=== PATIENT | male | born 1950 | race Caucasian/White ===

== ENCOUNTER 2019-02-21 13:01 | Observation (INO) | payer MEDICARE ==
--- NOTE | 2019-02-21 13:35 | ERPHSYRPT ---
- History of Present Illness Time Seen by Provider: 02/21/19 13:19 Source: patient, EMS, other (son) Exam Limitations: no limitations Physician History: Patient was found unresponsive by his family member, EMS checked his blood glucose, it was 20, he was given IV D50, recovered. He is diabetic, takes Glipizide and Januvia daily, and has not been eating for about one week. He denies any complaints, he does not have appetite, denies any pain, nausea, SOB, fever, vomiting, diarrhea, other complaints. Timing/Duration: hour(s) (1) Severity: severe Modifying Factors: Improves With: nothing Associated Symptoms: denies symptoms Allergies/Adverse Reactions: codeine Allergy (Verified 02/21/19 13:29) Home Medications: Amlodipine Besylate 10 mg PO DAILY 02/21/19 [History] Atorvastatin Calcium 80 mg PO HS 02/21/19 [History] Escitalopram Oxalate 10 mg [Lexapro 10 MG] 10 mg PO DAILY 02/21/19 [History] Fenofibric Acid (Choline) [Fenofibric Acid] 135 mg PO HS 02/21/19 [History] Glipizide Xl 10 mg [Glucotrol Xl 10 MG] 10 mg PO DAILY 02/21/19 [History] Lisinopril 5 mg PO DAILY 02/21/19 [History] Metoprolol Tartrate 50 mg [Lopressor 50 MG] 50 mg PO BID 02/21/19 [History ] Sitagliptin Phosphate [Januvia] 50 mg PO DAILY 02/21/19 [History] Warfarin Sodium 2 mg PO DAILY 02/21/19 [History] hydroCHLOROthiazide [Hydrochlorothiazide] 12.5 mg PO DAILY 02/21/19 [History] - Review of Systems Constitutional: Weakness Eyes: No Symptoms Ears, Nose, & Throat: No Symptoms Respiratory: No Symptoms Cardiac: No Symptoms Abdominal/Gastrointestinal: No Symptoms Genitourinary Symptoms: No Symptoms Musculoskeletal: No Symptoms Skin: No Symptoms Neurological: No Symptoms Psychological: No Symptoms, No Depression, No Suicidal Ideations All Other Systems: Reviewed and Negative - Nursing Vital Signs Nursing Vital Signs: Initial Vital Signs Temperature 97.7 F 02/21/19 13:07 Pulse Rate 90 02/21/19 13:07 Respiratory Rate 18 02/21/19 13:07 Blood Pressure 178/115 02/21/19 13:07 O2 Sat by Pulse Oximetry 100 02/21/19 13:07 Pain Scale Pain Intensity 0 - Physical Exam General Appearance: no apparent distress Eye Exam: PERRL/EOMI, eyes nml inspection Ears, Nose, Throat Exam: normal ENT inspection, pharynx normal, moist mucous membranes Neck Exam: normal inspection, non-tender, supple, No carotid bruit, No JVD Respiratory Exam: normal breath sounds, lungs clear, airway intact, No chest tenderness Cardiovascular Exam: regular rate/rhythm, normal heart sounds, normal peripheral pulses, No murmur Gastrointestinal/Abdomen Exam: soft, normal bowel sounds, No tenderness, No distention, No mass, No guarding, No pulsatile mass, No rebound, No organomegaly Back Exam: normal inspection, No CVA tenderness, No vertebral tenderness Extremity Exam: normal inspection, No calf tenderness, No emilia's sign, No pedal edema Neurologic Exam: alert, oriented x 3, cooperative, normal mood/affect Skin Exam: normal color, warm, dry, No rash, No petechiae, No jaundice, No cyanosis, No diaphoresis Lymphatic Exam: No adenopathy SpO2 Interpretation: normal O2 Delivery: Room Air - Course Nursing assessment & vital signs reviewed: Yes EKG Interpreted by Me: RATE (67/min), Left Nolan Deviation, NORMAL INTERVALS, NORMAL QRS, Non-specific ST Changes - Radiology Exams Chest X-ray Interpretation: Interpreted by me, Negative, Other (COPD) Ordered Tests: Active Orders 24 hr Category Date Time Status EKG-ER Only STAT Care 02/21/19 13:25 Active CHEST 1 VIEW (PORTABLE) Stat Exams 02/21/19 13:26 Completed CBC W DIFF Stat Lab 02/21/19 13:40 Completed CK-Creatinine Phosphokinase Stat Lab 02/21/19 13:40 Completed CMP Stat Lab 02/21/19 13:40 Completed LIPASE Stat Lab 02/21/19 13:40 Completed Lactic Acid Stat Lab 02/21/19 13:25 Results MAGNESIUM Stat Lab 02/21/19 13:40 Completed PROTIME WITH INR Stat Lab 02/21/19 13:40 Completed PTT Stat Lab 02/21/19 13:40 Completed TROPONIN Q3H Lab 02/21/19 13:40 Completed TROPONIN Q3H Lab 02/21/19 16:30 Ordered TROPONIN Q3H Lab 02/21/19 19:30 Ordered TROPONIN Q3H Lab 02/21/19 22:30 Ordered TROPONIN Q3H Lab 02/22/19 01:30 Ordered UA W/RFX UR CULTURE Stat Lab 02/21/19 14:12 Completed Medication Summary Generic Name Dose Route Start Last Admin Trade Name Freq PRN Reason Stop Dose Admin Sodium Chloride 1,000 mls @ 100 mls/hr 02/21/19 13:30 02/21/19 13:53 Sodium Chloride 0.9% 1000 Ml IV 03/23/19 13:29 100 mls/hr .Q10H JOSE JUAN Administration Discontinued Medications Generic Name Dose Route Start Last Admin Trade Name Freq PRN Reason Stop Dose Admin Sodium Chloride 1,000 mls @ 999 mls/hr 02/21/19 13:52 02/21/19 13:59 Sodium Chloride 0.9% 1000 Ml IV 02/21/19 14:52 Not Given .Q1H1M STA Lab/Rad Data: Laboratory Result Diagrams 02/21/19 13:40 02/21/19 13:40 Laboratory Results 02/21/19 02/21/19 02/21/19 Range/Units 14:12 13:40 13:40 WBC (4.0-10.5) K/mm3 RBC (4.1-5.6) M/mm3 Hgb (12.5-18.0) gm/dl Hct (42-50) % MCV (78-100) fl MCH (26-32) pg MCHC (32-36) g/dl RDW (11.5-14.0) % Plt Count (150-450) K/mm3 MPV (6-9.5) fl Gran % (36.0-66.0) % Eos # (Auto) (0-0.5) Absolute Lymphs (auto) (1.0-4.6) Absolute Monos (auto) (0.0-1.3) Lymphocytes % (24.0-44.0) % Monocytes % (0.0-12.0) % Eosinophils % (0.00-5.0) % Basophils % (0.0-0.4) % Absolute Granulocytes (1.4-6.9) Basophils # (0-0.4) PT 130.2 H (8.83-12.87) SECONDS INR > 10.00 H* (0.8-3.0) APTT 76.7 H (24.1-36.1) SECONDS Sodium (137-145) mmol/L Potassium (3.5-5.1) mmol/L Chloride (98-107) mmol/L Carbon Dioxide (22-30) mmol/L Anion Gap (5-15) MEQ/L BUN (9-20) mg/dL Creatinine (0.66-1.25) mg/dL Estimated GFR ML/MIN Glucose (74-106) mg/dL Lactic Acid (0.4-2.0) Calcium (8.4-10.2) mg/dL Magnesium (1.6-2.3) mg/dL Total Bilirubin (0.2-1.3) mg/dL AST (17-59) U/L ALT (0-50) U/L Alkaline Phosphatase (38-126) U/L Creatine Kinase (55-170) U/L Troponin I < 0.012 (0.000-0.034) ng/mL Serum Total Protein (6.3-8.2) g/dL Albumin (3.5-5.0) g/dL Lipase (23-300) U/L Urine Color YELLOW (YELLOW) Urine Appearance CLEAR (CLEAR) Urine pH 5.0 (5-6) Ur Specific [place] 1.014 (1.005-1.025) Urine Protein 100 (Negative) Urine Ketones NEGATIVE (NEGATIVE) Urine Blood SMALL (0-5) Carlos/ul Urine Nitrite NEGATIVE (NEGATIVE) Urine Bilirubin NEGATIVE (NEGATIVE) Urine Urobilinogen NEGATIVE (0-1) mg/dL Ur Leukocyte Esterase NEGATIVE (NEGATIVE) Urine WBC (Auto) NONE (0-5) /HPF Urine RBC (Auto) 3-5 (0-2) /HPF U Epithel Cells (Auto) NONE (FEW) /HPF Urine Bacteria (Auto) NONE (NEGATIVE) /HPF Urine Mucus (Auto) SLIGHT (NEGATIVE) /HPF Urine Culture Reflexed NO (NO) Urine Glucose NEGATIVE (NEGATIVE) mg/dL 02/21/19 02/21/19 02/21/19 Range/Units 13:40 13:40 13:25 WBC 13.1 H (4.0-10.5) K/mm3 RBC 4.64 (4.1-5.6) M/mm3 Hgb 12.8 (12.5-18.0) gm/dl Hct 39.4 L (42-50) % MCV 84.9 (78-100) fl MCH 27.6 (26-32) pg MCHC 32.5 (32-36) g/dl RDW 15.8 H (11.5-14.0) % Plt Count 279 (150-450) K/mm3 MPV 9.9 H (6-9.5) fl Gran % 85.9 H (36.0-66.0) % Eos # (Auto) 0.13 (0-0.5) Absolute Lymphs (auto) 1.14 (1.0-4.6) Absolute Monos (auto) 0.56 (0.0-1.3) Lymphocytes % 8.7 L (24.0-44.0) % Monocytes % 4.3 (0.0-12.0) % Eosinophils % 1.0 (0.00-5.0) % Basophils % 0.1 (0.0-0.4) % Absolute Granulocytes 11.29 H (1.4-6.9) Basophils # 0.01 (0-0.4) PT (8.83-12.87) SECONDS INR (0.8-3.0) APTT (24.1-36.1) SECONDS Sodium 136 L (137-145) mmol/L Potassium 4.7 (3.5-5.1) mmol/L Chloride 104 (98-107) mmol/L Carbon Dioxide 18 L (22-30) mmol/L Anion Gap 18.5 H (5-15) MEQ/L BUN 83 H (9-20) mg/dL Creatinine 4.89 H (0.66-1.25) mg/dL Estimated GFR 12.7 ML/MIN Glucose 153 H (74-106) mg/dL Lactic Acid 2.9 H (0.4-2.0) Calcium 8.8 (8.4-10.2) mg/dL Magnesium 2.1 (1.6-2.3) mg/dL Total Bilirubin 0.50 (0.2-1.3) mg/dL AST 32 (17-59) U/L ALT 19 (0-50) U/L Alkaline Phosphatase 61 (38-126) U/L Creatine Kinase 63 (55-170) U/L Troponin I (0.000-0.034) ng/mL Serum Total Protein 6.9 (6.3-8.2) g/dL Albumin 3.6 (3.5-5.0) g/dL Lipase 189 (23-300) U/L Urine Color (YELLOW) Urine Appearance (CLEAR) Urine pH (5-6) Ur Specific [place] (1.005-1.025) Urine Protein (Negative) Urine Ketones (NEGATIVE) Urine Blood (0-5) Carlos/ul Urine Nitrite (NEGATIVE) Urine Bilirubin (NEGATIVE) Urine Urobilinogen (0-1) mg/dL Ur Leukocyte Esterase (NEGATIVE) Urine WBC (Auto) (0-5) /HPF Urine RBC (Auto) (0-2) /HPF U Epithel Cells (Auto) (FEW) /HPF Urine Bacteria (Auto) (NEGATIVE) /HPF Urine Mucus (Auto) (NEGATIVE) /HPF Urine Culture Reflexed (NO) Urine Glucose (NEGATIVE) mg/dL - Progress Progress: improved Progress Note: 02/21/19 14:59 Pt has been stable, alert, had some coffee, not nauseated, given NS bolus, reviewed his labs and chest X ray, called Dr Tapia, discussed our findings and his current condition, he agreed to admit this patient for observation, patient and his family was informed and agreed. His INR: > 10 will hold Coumadin. 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
[2019-02-21 13:43] LABS: BASOPHIL % 0.1 % (0.0-0.4); Basophil (Absolute #) 0.01 (0-0.4); Eosinophil (Absolute #) 0.13 (0-0.5); Granulocyte Absolute (ANC) 11.29 (1.4-6.9); Granulocytes % 85.9 % (36.0-66.0); Hematocrit 39.4 % (42-50); Hemoglobin 12.8 gm/dl (12.5-18.0); Lymphocyte (Absolute #) 1.14 (1.0-4.6); Lymphocytes % 8.7 % (24.0-44.0); Mean Cell Volume 84.9 fl (78-100); Mean Corpuscular Hemoglobin 27.6 pg (26-32); Mean Corpuscular Hgb Concent. 32.5 g/dl (32-36); Mean Platelet Volume 9.9 fl (6-9.5); Monocyte (Absolute #) 0.56 (0.0-1.3); Monocytes % 4.3 % (0.0-12.0); Platelet Count 279 K/mm3 (150-450); Red Blood Count 4.64 M/mm3 (4.1-5.6); Red Cell Distribution Width 15.8 % (11.5-14.0); White Blood Count 13.1 K/mm3 (4.0-10.5)
[2019-02-21 13:45] LABS: Lactic Acid 2.9 (0.4-2.0)
[2019-02-21] MEDS ORDERED: Sodium Chloride 0.9% 1000 ML 1,000 ML IV STA (13:52)
[2019-02-21] MEDS: Sodium Chloride 0.9% 1000 ML 1,000 ML IV SCH ×2 (13:53→22:43)
[2019-02-21 13:59] LABS: ALBUMIN 3.6 g/dL (3.5-5.0); ANION GAP 18.5 MEQ/L (5-15); BILIRUBIN,TOTAL 0.5 mg/dL (0.2-1.3); Calcium 8.8 mg/dL (8.4-10.2); Creatinine 1 4.89 mg/dL (0.66-1.25); MAGNESIUM 2.1 mg/dL (1.6-2.3); Potassium 4.7 mmol/L (3.5-5.1); Total Protein 6.9 g/dL (6.3-8.2)
[2019-02-21 14:08] LABS: PTT 76.7 SECONDS (24.1-36.1)
--- NOTE | 2019-02-21 14:12 | XRAY ---
Indication: COPD. Comparison: August 19, 2008. Portable chest better inflated with a few tiny calcified granulomas. No focal infiltrate, consolidation, or large effusion. Heart is not enlarged. Descending aorta is now tortuous. Bony thorax intact. Impression: Nonacute chest with chronic features.
[2019-02-21 14:31] LABS: Appearance CLEAR (CLEAR); Bilirubin NEGATIVE (NEGATIVE); Blood SMALL Ery/ul (0-5); Glucose NEGATIVE (NEGATIVE); Ketones NEGATIVE (NEGATIVE); Leukocyte Esterase NEGATIVE (NEGATIVE); Mucus SLIGHT /HPF (NEGATIVE); Nitrite NEGATIVE (NEGATIVE); Protein,Urine Dip 100 (Negative); Specific Gravity 1.014 (1.005-1.025); Urobilinogen NEGATIVE mg/dL (0-1)
[2019-02-21 14:39] LABS: PROTIME 130.2 SECONDS (8.83-12.87)
[2019-02-21 14:42] LABS: INR > 10.00 (0.8-3.0)
[2019-02-21] MEDS ORDERED: DUONEB 0.5-3 MG/3 ml Neb IH PRN (15:02)
[2019-02-21] MEDS ORDERED: NovoLOG Insulin SQ PRN (15:02)
[2019-02-21] MEDS ORDERED: TYLENOL 325 MG PO PRN (15:02)
[2019-02-21] MEDS ORDERED: Sodium Chloride 0.9% 1000 ML 1,000 ML IV SCH (15:15)
[2019-02-21] MEDS: Januvia 50 MG PO SCH (17:15)
[2019-02-21] MEDS: Zestril 5 MG PO SCH (17:18)
[2019-02-21] MEDS: NORVASC 5 MG PO SCH (17:18)
[2019-02-21] MEDS: Lexapro 10 MG PO SCH (17:18)
[2019-02-21] MEDS: hydroDIURIL 25 MG PO SCH (17:20)
[2019-02-21] MEDS ORDERED: ZOCOR 20MG PO SCH (22:00)
[2019-02-21] MEDS ORDERED: Tricor 145 MG PO SCH (22:00)
[2019-02-21] MEDS: Lopressor 50 MG PO SCH (22:42)
[2019-02-22 05:50] LABS: BASOPHIL % 0.3 % (0.0-0.4); Basophil (Absolute #) 0.03 (0-0.4); Eosinophil % 2.8 % (0.00-5.0); Eosinophil (Absolute #) 0.31 (0-0.5); Granulocyte Absolute (ANC) 7.93 (1.4-6.9); Granulocytes % 71.2 % (36.0-66.0); Hematocrit 34.7 % (42-50); Hemoglobin 11.4 gm/dl (12.5-18.0); Lymphocyte (Absolute #) 2.05 (1.0-4.6); Lymphocytes % 18.4 % (24.0-44.0); Mean Cell Volume 84.2 fl (78-100); Mean Corpuscular Hemoglobin 27.6 pg (26-32); Mean Corpuscular Hgb Concent. 32.9 g/dl (32-36); Mean Platelet Volume 9.4 fl (6-9.5); Monocyte (Absolute #) 0.81 (0.0-1.3); Monocytes % 7.3 % (0.0-12.0); Platelet Count 226 K/mm3 (150-450); Red Blood Count 4.12 M/mm3 (4.1-5.6); Red Cell Distribution Width 15.8 % (11.5-14.0); White Blood Count 11.1 K/mm3 (4.0-10.5)
[2019-02-22 05:58] LABS: ANION GAP 13.9 MEQ/L (5-15); Calcium 8.7 mg/dL (8.4-10.2); Creatinine 1 4.45 mg/dL (0.66-1.25); Potassium 4.8 mmol/L (3.5-5.1)
[2019-02-22] MEDS ORDERED: Glucotrol Xl 10 MG PO SCH (08:00)
[2019-02-22] MEDS: Sodium Chloride 0.9% 1000 ML 1,000 ML IV SCH (08:31)
[2019-02-22] MEDS: Lopressor 50 MG PO SCH (09:51)
[2019-02-22] MEDS: Januvia 50 MG PO SCH (09:51)
[2019-02-22] MEDS: NORVASC 5 MG PO SCH (09:51)
[2019-02-22] MEDS: hydroDIURIL 25 MG PO SCH (09:51)
[2019-02-22] MEDS: Lexapro 10 MG PO SCH (09:51)
[2019-02-22 10:33] LABS: PROTIME 120.4 SECONDS (8.83-12.87)
[2019-02-22 10:36] LABS: INR > 10.00 (0.8-3.0)
[2019-02-22] MEDS: Zestril 5 MG PO SCH (10:54)
[2019-02-22] MEDS ORDERED: Vitamin K 10 MG/ML IM ONE (10:58)
[2019-02-22 12:00] VITALS: BP 176/89; PULSE 83; O2SAT 92
[2019-02-22] MEDS ORDERED: Zofran 4 MG/2 ML VIAL IV PRN (12:38)
--- NOTE | 2019-02-22 21:10 | PCM.SSS ---
History of Present Illness - Chief Complaint Chief Complaint: found unresponsive at home History of Present Illness: is a 68 year old male.Patient was found unresponsive by his family member, EMS checked his blood glucose, it was 20, he was given IV D50, recovered. He is diabetic, takes Glipizide and Januvia daily, and has not been eating for about one week. He denies any complaints, he does not have appetite, denies any pain, nausea, SOB, fever, vomiting, diarrhea, other complaints. - Review of Systems Constitutional: Lethargy, Weakness, No Fever, No Chills Eyes: No Symptoms Ears, Nose, & Throat: No Symptoms Respiratory: No Cough, No Short Of Breath Cardiac: No Chest Pain, No Edema, No Syncope Abdominal/Gastrointestinal: No Abdominal Pain, No Nausea, No Vomiting, No Diarrhea Genitourinary Symptoms: No Dysuria Musculoskeletal: No Back Pain, No Neck Pain Skin: No Rash Neurological: Other (unresponsive at home), No Dizziness, No Focal Weakness, No Sensory Changes Psychological: No Symptoms Endocrine: No Symptoms Hematologic/Lymphatic: No Symptoms Immunological/Allergic: No Symptoms Medications & Allergies Home Medications: Home Medication List Amlodipine Besylate 10 mg PO DAILY 02/21/19 [History Confirmed 02/21/19] Atorvastatin Calcium 80 mg PO HS 02/21/19 [History Confirmed 02/21/19] Escitalopram Oxalate 10 mg [Lexapro 10 MG] 10 mg PO DAILY 02/21/19 [History Confirmed 02/21/19] Fenofibric Acid (Choline) [Fenofibric Acid] 135 mg PO HS 02/21/19 [History Confirmed 02/21/19] Glipizide Xl 10 mg [Glucotrol Xl 10 MG] 10 mg PO DAILY 02/21/19 [History Confirmed 02/21/19] Lisinopril 5 mg PO DAILY 02/21/19 [History Confirmed 02/21/19] Metoprolol Tartrate 50 mg [Lopressor 50 MG] 50 mg PO BID 02/21/19 [ History Confirmed 02/21/19] Sitagliptin Phosphate [Januvia] 50 mg PO DAILY 02/21/19 [History Confirmed 02/21] Warfarin Sodium 2 mg PO DAILY 02/21/19 [History Confirmed 02/21/19] hydroCHLOROthiazide [Hydrochlorothiazide] 12.5 mg PO DAILY 02/21/19 [History Confirmed 02/21/19] Allergies/Adverse Reactions: Allergies Allergy/AdvReac Type Severity Reaction Status Date / Time codeine Allergy Verified 02/21/19 13:29 - Past Medical History Past Medical History: Yes Neurological History: Stroke ENT History: Cataracts Cardiac History: High Cholesterol, Hypertension Respiratory History: COPD Endocrine Medical History: Diabetes Type II Musculoskelatal History: No Pertinent History GI Medical History: No Pertinent History History: No Pertinent History Pyscho-Social History: No Pertinent History Male Reproductive Disorders: No Pertinent History - Past Surgical History Past Surgical History: Yes GI Surgical History: Cholecystectomy Other Surgical History: AAA SURGERY - Social History Smoking Status: Current every day smoker How long have you smoked: YRS Exposure to second hand smoke: No Alcohol: None Drug Use: none - Physical Exam Vital Signs: Vital Signs - 24 hr Temp Pulse Resp BP Pulse Ox 02/22/19 11:59 98.2 F 83 18 176/89 92 L 02/22/19 08:28 96 02/22/19 07:42 98.5 F 75 17 138/78 96 02/22/19 04:00 98.2 F 67 16 143/75 98 02/22/19 00:12 98.2 F 81 18 142/83 97 General Appearance: no apparent distress, alert Neurologic Exam: alert, oriented x 3, cooperative, normal mood/affect, nml cerebellar function, nml station & gait, sensation nml, No motor deficits Eye Exam: PERRL/EOMI, eyes nml inspection Ears, Nose, Throat Exam: normal ENT inspection, TMs normal, pharynx normal, moist mucous membranes Neck Exam: normal inspection, non-tender, supple, full range of motion Respiratory Exam: normal breath sounds, lungs clear, No respiratory distress Cardiovascular Exam: regular rate/rhythm, normal heart sounds, normal peripheral pulses Gastrointestinal/Abdomen Exam: soft, normal bowel sounds, No tenderness, No mass Back Exam: normal inspection, normal range of motion, No CVA tenderness, No vertebral tenderness Extremity Exam: normal inspection, normal range of motion, pelvis stable Skin Exam: normal color, warm, dry, No rash Lymphatic Exam: No adenopathy Results - Labs Lab/Micro Results: Accuchecks Date 02/22/19 Date 02/22/19 Date 02/22/19 Time 11:30 Time 11:30 Time 08:00 Accucheck Value: 179 Accucheck Value: 179 Accucheck Value: 130 Accucheck Value: 65 Accucheck Value: 240 Lab Results-Last 24 Hours 02/21/19 02/22/19 02/22/19 Range/Units 22:38 01:13 05:00 WBC (4.0-10.5) K/mm3 RBC (4.1-5.6) M/mm3 Hgb (12.5-18.0) gm/dl Hct (42-50) % MCV (78-100) fl MCH (26-32) pg MCHC (32-36) g/dl RDW (11.5-14.0) % Plt Count (150-450) K/mm3 MPV (6-9.5) fl Gran % (36.0-66.0) % Eos # (Auto) (0-0.5) Absolute Lymphs (auto) (1.0-4.6) Absolute Monos (auto) (0.0-1.3) Lymphocytes % (24.0-44.0) % Monocytes % (0.0-12.0) % Eosinophils % (0.00-5.0) % Basophils % (0.0-0.4) % Absolute Granulocytes (1.4-6.9) Basophils # (0-0.4) PT 120.4 H (8.83-12.87) SECONDS INR > 10.00 H* (0.8-3.0) Sodium (137-145) mmol/L Potassium (3.5-5.1) mmol/L Chloride (98-107) mmol/L Carbon Dioxide (22-30) mmol/L Anion Gap (5-15) MEQ/L BUN (9-20) mg/dL Creatinine (0.66-1.25) mg/dL Estimated GFR ML/MIN Glucose (74-106) mg/dL Lactic Acid (0.4-2.0) Calcium (8.4-10.2) mg/dL Troponin I 0.014 0.015 (0.000-0.034) ng/mL 02/22/19 02/22/19 02/22/19 Range/Units 05:16 05:16 05:20 WBC 11.1 H (4.0-10.5) K/mm3 RBC 4.12 (4.1-5.6) M/mm3 Hgb 11.4 L (12.5-18.0) gm/dl Hct 34.7 L (42-50) % MCV 84.2 (78-100) fl MCH 27.6 (26-32) pg MCHC 32.9 (32-36) g/dl RDW 15.8 H (11.5-14.0) % Plt Count 226 (150-450) K/mm3 MPV 9.4 (6-9.5) fl Gran % 71.2 H (36.0-66.0) % Eos # (Auto) 0.31 (0-0.5) Absolute Lymphs (auto) 2.05 (1.0-4.6) Absolute Monos (auto) 0.81 (0.0-1.3) Lymphocytes % 18.4 L (24.0-44.0) % Monocytes % 7.3 (0.0-12.0) % Eosinophils % 2.8 (0.00-5.0) % Basophils % 0.3 (0.0-0.4) % Absolute Granulocytes 7.93 H (1.4-6.9) Basophils # 0.03 (0-0.4) PT (8.83-12.87) SECONDS INR (0.8-3.0) Sodium 135 L (137-145) mmol/L Potassium 4.8 (3.5-5.1) mmol/L Chloride 105 (98-107) mmol/L Carbon Dioxide 22 (22-30) mmol/L Anion Gap 13.9 (5-15) MEQ/L BUN 82 H (9-20) mg/dL Creatinine 4.45 H (0.66-1.25) mg/dL Estimated GFR 14.1 ML/MIN Glucose 54 L (74-106) mg/dL Lactic Acid 0.8 (0.4-2.0) Calcium 8.7 (8.4-10.2) mg/dL Troponin I (0.000-0.034) ng/mL Accuchecks Date 02/22/19 Date 02/22/19 Date 02/22/19 Time 11:30 Time 11:30 Time 08:00 Accucheck Value: 179 Accucheck Value: 179 Accucheck Value: 130 Accucheck Value: 65 Accucheck Value: 240 - Radiology Impressions Radiology Exams & Impressions: Radiology Procedures Category Date Time Status CHEST 1 VIEW (PORTABLE) Stat Exams 02/21/19 13:26 Completed Assessment/Plan (1) Acute renal failure (ARF) Status: Acute Qualifiers: Acute renal failure type: with acute renal cortical necrosis Qualified Code (s): N17.1 - Acute kidney failure with acute cortical necrosis Assessment & Plan: Chief Complaint Diagnosis hypoglycemia Allergies Allergy/AdvReac Type Severity Reaction Status Date / Time codeine Allergy Verified 02/21/19 13:29 Vital Signs (Last 24 hours) Temp Pulse Resp BP Pulse Ox 02/22/19 11:59 98.2 F 83 18 176/89 92 L 02/22/19 08:28 96 02/22/19 07:42 98.5 F 75 17 138/78 96 02/22/19 04:00 98.2 F 67 16 143/75 98 02/22/19 00:12 98.2 F 81 18 142/83 97 Home Medications Medication Instructions Recorded Confirmed Last Taken Type Amlodipine Besylate 10 mg PO DAILY 02/21/19 02/21/19 02/20/19 History Atorvastatin Calcium 80 mg PO HS 02/21/19 02/21/19 02/20/19 History Escitalopram Oxalate 10 mg 10 mg PO DAILY 02/21/19 02/21/19 02/20/19 History [Lexapro 10 MG] Fenofibric Acid (Choline) 135 mg PO HS 02/21/19 02/21/19 02/20/19 History [Fenofibric Acid] Glipizide Xl 10 mg [Glucotrol 10 mg PO DAILY 02/21/19 02/21/19 02/20/19 History Xl 10 MG] Lisinopril 5 mg PO DAILY 02/21/19 02/21/19 02/20/19 History Metoprolol Tartrate 50 mg 50 mg PO BID 02/21/19 02/21/19 02/20/19 History [Lopressor 50 MG] Sitagliptin Phosphate [Januvia] 50 mg PO DAILY 02/21/19 02/21/19 02/20/19 History Warfarin Sodium 2 mg PO DAILY 02/21/19 02/21/19 02/20/19 History hydroCHLOROthiazide 12.5 mg PO DAILY 02/21/19 02/21/19 02/20/19 History [Hydrochlorothiazide] Current Medications Discontinued Medications Generic Name Dose Route Start Last Admin Trade Name Freq PRN Reason Stop Dose Admin Acetaminophen 650 mg 02/21/19 15:02 Tylenol 325 Mg PO 03/23/19 15:01 Q4H PRN PRN PAIN AND/OR FEVER Albuterol/Ipratropium 3 ml 02/21/19 15:02 Duoneb 0.5-3 Mg/3 Ml Neb IH 03/23/19 15:01 Q4HPRN PRN SHORTNESS OF BREATH/WHEEZING Amlodipine Besylate 10 mg 02/21/19 18:00 02/22/19 09:51 Norvasc 5 Mg PO 03/23/19 17:59 10 mg DAILY JOSE JUAN Administration Escitalopram Oxalate 10 mg 02/21/19 18:00 02/22/19 09:51 Lexapro 10 Mg PO 03/23/19 17:59 10 mg DAILY JOSE JUAN Administration Fenofibrate 145 mg 02/21/19 22:00 02/21/19 22:42 Tricor 145 Mg PO 03/23/19 21:59 145 mg HS JOSE JUAN Administration Glipizide 10 mg 02/22/19 08:00 02/22/19 08:38 Glucotrol Xl 10 Mg PO 03/24/19 07:59 10 mg BREAKFAST JOSE JUAN Administration Hydrochlorothiazide 12.5 mg 02/21/19 18:00 02/22/19 09:51 Hydrodiuril 25 Mg PO 03/23/19 17:59 12.5 mg QAM JOSE JUAN Administration Sodium Chloride 1,000 mls @ 100 mls/hr 02/21/19 13:30 02/22/19 08:31 Sodium Chloride 0.9% 1000 Ml IV 03/23/19 13:29 100 mls/hr .Q10H JOSE JUAN Administration Sodium Chloride 1,000 mls @ 999 mls/hr 02/21/19 13:52 02/21/19 13:59 Sodium Chloride 0.9% 1000 Ml IV 02/21/19 14:52 Not Given .Q1H1M STA Sodium Chloride 1,000 mls @ 100 mls/hr 02/21/19 15:15 Sodium Chloride 0.9% 1000 Ml IV 03/23/19 15:14 .Q10H JOSE JUAN Insulin Aspart 0 unit 02/21/19 15:02 02/22/19 00:35 Novolog Insulin SQ 03/23/19 15:01 2 unit UD PRN Administration HYPERGLYCEMIA Lisinopril 5 mg 02/21/19 18:00 02/22/19 10:54 Zestril 5 Mg PO 03/23/19 17:59 5 mg DAILY JOSE JUAN Administration Metoprolol Tartrate 50 mg 02/21/19 22:00 02/22/19 09:51 Lopressor 50 Mg PO 03/23/19 21:59 50 mg BID JOSE JUAN Administration Ondansetron HCl 4 mg 02/22/19 12:38 02/22/19 12:59 Zofran 4 Mg/2 Ml Vial IV 03/24/19 12:37 4 mg Q4H PRN PRN Administration NAUSEA/VOMITING Phytonadione 10 mg 02/22/19 10:58 02/22/19 11:32 Vitamin K 10 Mg/Ml IM 02/22/19 10:59 10 mg STAT ONE Administration Simvastatin 80 mg 02/21/19 22:00 02/21/19 22:42 Zocor 20mg PO 03/23/19 21:59 80 mg HS JOSE JUAN Administration Sitagliptin Phosphate 50 mg 02/21/19 18:00 02/22/19 09:51 Januvia 50 Mg PO 03/23/19 17:59 50 mg DAILY JOSE JUAN Administration Intake & Output (Last 24 hours) 02/20/19 02/21/19 02/22/19 02/23/19 11:59 11:59 11:59 11:59 Intake Total 2315 480 Output Total 900 1500 Balance 1415 -1020 Weight 54 kg Microbiology Results (Last 24 hours) 02/22/19 12:55 Urine, Indwelling Catheter Urine Culture - Pending Laboratory Results (Last 24 hours) 02/22/19 02/22/19 02/22/19 05:20 05:16 05:16 WBC 11.1 H RBC 4.12 Hgb 11.4 L Hct 34.7 L MCV 84.2 MCH 27.6 MCHC 32.9 RDW 15.8 H Plt Count 226 MPV 9.4 Gran % 71.2 H Eos # (Auto) 0.31 Absolute Lymphs (auto) 2.05 Absolute Monos (auto) 0.81 Lymphocytes % 18.4 L Monocytes % 7.3 Eosinophils % 2.8 Basophils % 0.3 Absolute Granulocytes 7.93 H Basophils # 0.03 PT INR Sodium 135 L Potassium 4.8 Chloride 105 Carbon Dioxide 22 Anion Gap 13.9 BUN 82 H Creatinine 4.45 H Estimated GFR 14.1 Glucose 54 L Lactic Acid 0.8 Calcium 8.7 Troponin I 02/22/19 02/22/19 02/21/19 05:00 01:13 22:38 WBC RBC Hgb Hct MCV MCH MCHC RDW Plt Count MPV Gran % Eos # (Auto) Absolute Lymphs (auto) Absolute Monos (auto) Lymphocytes % Monocytes % Eosinophils % Basophils % Absolute Granulocytes Basophils # PT 120.4 H INR > 10.00 H* Sodium Potassium Chloride Carbon Dioxide Anion Gap BUN Creatinine Estimated GFR Glucose Lactic Acid Calcium Troponin I 0.015 0.014 Orders (Last 24 hours) Category Date Time Status Catheter Care Record Q6H Care 02/22/19 12:14 Active Patel [Catheter-[place] Patel] STAT Care 02/22/19 12:14 Active Consult Nephrology ROUTINE Cons 02/22/19 09:51 Completed Infection Control Consult ROUTINE Cons 02/22/19 13:33 Active Discharge Routine Discharge 02/22/19 Ordered Discharge/Telephone Order Routine Discharge 02/22/19 Active BMP AM.LAB Lab 02/22/19 05:16 Completed CBC W DIFF AM.LAB Lab 02/22/19 05:16 Completed CULTURE,URINE Urgent Lab 02/22/19 12:55 Received Lactic Acid AM.LAB Lab 02/22/19 05:20 Completed PT INR [PROTIME WITH INR] Routine Lab 02/22/19 05:00 Completed TROPONIN Q3H Lab 02/21/19 20:21 Completed TROPONIN Q3H Lab 02/21/19 22:38 Completed TROPONIN Q3H Lab 02/22/19 01:13 Completed Fenofibrate,Micronized 145 mg* [Tricor 145 MG] Med 02/21/19 22:00 Discontinued 145 mg PO HS Glipizide Xl 10 mg [Glucotrol Xl 10 MG] Med 02/22/19 08:00 Discontinued 10 mg PO BREAKFAST Metoprolol Tartrate 50 mg [Lopressor 50 MG] Med 02/21/19 22:00 Discontinued 50 mg PO BID Ondansetron HCl 4 mg/2 ml [Zofran 4 MG/2 ML VIAL] Med 02/22/19 12:38 Discontinued 4 mg IV Q4H PRN PRN Phytonadione 10 mg [Vitamin K 10 MG/ML] Med 02/22/19 10:58 Discontinued 10 mg IM STAT ONE Simvastatin 20Mg [Zocor 20Mg] Med 02/21/19 22:00 Discontinued 80 mg PO HS Respiratory Therapy Assessment DAILY RT 02/22/19 07:00 Completed Patient Care Notes (Last 24 hours) 02/22/19 13:33 Nursing Note by Lenore Block Pt. family called Pt. is going to [facility] room [phone] I did let them know this. Report was given to Cynthia RN on 5th floor. Initialized on 02/22/19 13:33 - END OF NOTE 02/22/19 13:20 Nursing Note by Lenore Block Called Pt. family talked to Magnus Pt. son to inform them that Pt. was being transfered to [facility]. Magnus stated "I will let my brothers know because I can't go because I am helping with my mom." Did inform Pt. family was called. Initialized on 02/22/19 13:20 - END OF NOTE 02/22/19 12:46 Nursing Note by Lenore Block Dr. here to see Pt. Pt. is being transfered to [facility], ordered f/c it was placed 16fr. Dr. Tapia was notified and just waiting for [facility] to call us for a bed. Initialized on 02/22/19 12:46 - END OF NOTE 02/22/19 10:44 Nursing Note by Lenore Block Lab called and spoke with Brian Li [employer] INR >10.[address] Tapia 's office spoke with Kia his nurse because he was in with Pt.s and she stated "I will let him know." Initialized on 02/22/19 10:44 - END OF NOTE 02/22/19 10:38 Nursing Note by Lucien Li called at this time and reported INR >10. Reported this to Lenore OVALLE and Dr Tapia. Initialized on 02/22/19 10:38 - END OF NOTE 02/22/19 08:40 (created 02/22/19 15:52) Case Management Note by Dina Medina DR. ROUNDED AND EVALUATED, DISCUSSED WITH PT HAVING NEPHROLOGY CONSULT, AND POSSIBILITY FOR PT TO BE TRANSFERRED TO [place] FOR SPECIALIZED CARE. PT IS AGREEABLE TO WHATEVER IS NEEDED. NO ADDNL NEEDS NOTED AT PRESENT. 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 Code(s): D68.32 - HEMORRHAGIC DISORD D/T EXTRINSIC CIRCULATING ANTICOAGULANTS; T45.515A - ADVERSE EFFECT OF ANTICOAGULANTS, INITIAL ENCOUNTER Hospital Summary - Hospital Course Hospital Course: Last Vital Signs Temp 98.2 F 02/22/19 11:59 Pulse 83 02/22/19 11:59 Resp 18 02/22/19 11:59 BP 176/89 02/22/19 11:59 Pulse Ox 92 L 02/22/19 11:59 Allergies codeine Allergy (Verified 02/21/19 13:29) Intake & Output 02/22/19 02/23/19 11:59 11:59 Intake Total 2315 480 Output Total 900 1500 Balance 1415 -1020 Weight 54 kg Orders 02/22/19 Discharge Routine Discharge/Telephone Order Routine 02/22/19 13:33 Infection Control Consult ROUTINE Lab Tests 02/21/19 02/22/19 02/22/19 22:38 01:13 05:00 WBC RBC Hgb Hct MCV MCH MCHC RDW Plt Count MPV Gran % Eos # (Auto) Absolute Lymphs (auto) Absolute Monos (auto) Lymphocytes % Monocytes % Eosinophils % Basophils % Absolute Granulocytes Basophils # PT 120.4 H INR > 10.00 H* Sodium Potassium Chloride Carbon Dioxide Anion Gap BUN Creatinine Estimated GFR Glucose Lactic Acid Calcium Troponin I 0.014 0.015 02/22/19 02/22/19 02/22/19 05:16 05:16 05:20 WBC 11.1 H RBC 4.12 Hgb 11.4 L Hct 34.7 L MCV 84.2 MCH 27.6 MCHC 32.9 RDW 15.8 H Plt Count 226 MPV 9.4 Gran % 71.2 H Eos # (Auto) 0.31 Absolute Lymphs (auto) 2.05 Absolute Monos (auto) 0.81 Lymphocytes % 18.4 L Monocytes % 7.3 Eosinophils % 2.8 Basophils % 0.3 Absolute Granulocytes 7.93 H Basophils # 0.03 PT INR Sodium 135 L Potassium 4.8 Chloride 105 Carbon Dioxide 22 Anion Gap 13.9 BUN 82 H Creatinine 4.45 H Estimated GFR 14.1 Glucose 54 L Lactic Acid 0.8 Calcium 8.7 Troponin I - Vitals & Intake/Output Vital Signs: Vital Signs Temperature 98.2 F 02/22/19 11:59 Pulse Rate 83 02/22/19 11:59 Respiratory Rate 18 02/22/19 11:59 Blood Pressure 176/89 02/22/19 11:59 O2 Sat by Pulse Oximetry 92 L 02/22/19 11:59 Intake & Output: Intake & Output 02/20/19 02/21/19 02/22/19 02/23/19 11:59 11:59 11:59 11:59 Intake Total 2315 480 Output Total 900 1500 Balance 1415 -1020 Weight 54 kg - Lab Result Diagrams: 02/22/19 05:16 02/22/19 05:16 Lab Results-Last 24 Hrs: Accuchecks Date 02/22/19 Date 02/22/19 Date 02/22/19 Time 11:30 Time 11:30 Time 08:00 Accucheck Value: 179 Accucheck Value: 179 Accucheck Value: 130 Accucheck Value: 65 Accucheck Value: 240 Lab Results-Last 24 Hours 02/21/19 02/22/19 02/22/19 Range/Units 22:38 01:13 05:00 WBC (4.0-10.5) K/mm3 RBC (4.1-5.6) M/mm3 Hgb (12.5-18.0) gm/dl Hct (42-50) % MCV (78-100) fl MCH (26-32) pg MCHC (32-36) g/dl RDW (11.5-14.0) % Plt Count (150-450) K/mm3 MPV (6-9.5) fl Gran % (36.0-66.0) % Eos # (Auto) (0-0.5) Absolute Lymphs (auto) (1.0-4.6) Absolute Monos (auto) (0.0-1.3) Lymphocytes % (24.0-44.0) % Monocytes % (0.0-12.0) % Eosinophils % (0.00-5.0) % Basophils % (0.0-0.4) % Absolute Granulocytes (1.4-6.9) Basophils # (0-0.4) PT 120.4 H (8.83-12.87) SECONDS INR > 10.00 H* (0.8-3.0) Sodium (137-145) mmol/L Potassium (3.5-5.1) mmol/L Chloride (98-107) mmol/L Carbon Dioxide (22-30) mmol/L Anion Gap (5-15) MEQ/L BUN (9-20) mg/dL Creatinine (0.66-1.25) mg/dL Estimated GFR ML/MIN Glucose (74-106) mg/dL Lactic Acid (0.4-2.0) Calcium (8.4-10.2) mg/dL Troponin I 0.014 0.015 (0.000-0.034) ng/mL 02/22/19 02/22/19 02/22/19 Range/Units 05:16 05:16 05:20 WBC 11.1 H (4.0-10.5) K/mm3 RBC 4.12 (4.1-5.6) M/mm3 Hgb 11.4 L (12.5-18.0) gm/dl Hct 34.7 L (42-50) % MCV 84.2 (78-100) fl MCH 27.6 (26-32) pg MCHC 32.9 (32-36) g/dl RDW 15.8 H (11.5-14.0) % Plt Count 226 (150-450) K/mm3 MPV 9.4 (6-9.5) fl Gran % 71.2 H (36.0-66.0) % Eos # (Auto) 0.31 (0-0.5) Absolute Lymphs (auto) 2.05 (1.0-4.6) Absolute Monos (auto) 0.81 (0.0-1.3) Lymphocytes % 18.4 L (24.0-44.0) % Monocytes % 7.3 (0.0-12.0) % Eosinophils % 2.8 (0.00-5.0) % Basophils % 0.3 (0.0-0.4) % Absolute Granulocytes 7.93 H (1.4-6.9) Basophils # 0.03 (0-0.4) PT (8.83-12.87) SECONDS INR (0.8-3.0) Sodium 135 L (137-145) mmol/L Potassium 4.8 (3.5-5.1) mmol/L Chloride 105 (98-107) mmol/L Carbon Dioxide 22 (22-30) mmol/L Anion Gap 13.9 (5-15) MEQ/L BUN 82 H (9-20) mg/dL Creatinine 4.45 H (0.66-1.25) mg/dL Estimated GFR 14.1 ML/MIN Glucose 54 L (74-106) mg/dL Lactic Acid 0.8 (0.4-2.0) Calcium 8.7 (8.4-10.2) mg/dL Troponin I (0.000-0.034) ng/mL Micro Results-Entire Visit: Accuchecks Date 02/22/19 Date 02/22/19 Date 02/22/19 Time 11:30 Time 11:30 Time 08:00 Accucheck Value: 179 Accucheck Value: 179 Accucheck Value: 130 Accucheck Value: 65 Accucheck Value: 240 - Radiology Exams Ordered Rad Exams-Entire Visit: Radiology Procedures Category Date Time Status CHEST 1 VIEW (PORTABLE) Stat Exams 02/21/19 13:26 Completed - Procedures and Test Procedures and Tests throughout Hospitalization: Therapy Orders & Screens 02/21/19 15:35 Smoking Cessation Education ONCE Comment: Diagnosis: hypoglycemia Smoking Status: Current every day smoker How long have you smoked: YRS Do you dip or chew tobacco: No 02/22/19 07:00 Respiratory Therapy Assessment DAILY Comment: Diagnosis: hypoglycemia - Discharge Discharge Date: 02/22/19 [facility] Condition: Stable Prescriptions: No Action Metoprolol Tartrate 50 mg [Lopressor 50 MG] 50 mg PO BID Escitalopram Oxalate 10 mg [Lexapro 10 MG] 10 mg PO DAILY hydroCHLOROthiazide [Hydrochlorothiazide] 12.5 mg PO DAILY Warfarin Sodium 2 mg PO DAILY Sitagliptin Phosphate [Januvia] 50 mg PO DAILY Lisinopril 5 mg PO DAILY Glipizide Xl 10 mg [Glucotrol Xl 10 MG] 10 mg PO DAILY Fenofibric Acid (Choline) [Fenofibric Acid] 135 mg PO HS Atorvastatin Calcium 80 mg PO HS Amlodipine Besylate 10 mg PO DAILY Follow up with: DOMINGA ROCHE NP [Primary Care Provider] - 1 Week
== END 2019-02-22 16:10 | disposition short-term general hospital (02) ==
LOC: ED 13:01 → MED SURG 15:15
PROVIDERS: ADMIT General Practice; ATTEND General Practice
DX: N17.1 Acute kidney failure with acute cortical necrosis (principal); E11.21 Type 2 diabetes mellitus with diabetic nephropathy; E11.649 Type 2 diabetes mellitus with hypoglycemia without coma; D68.2 Hereditary deficiency of other clotting factors; T45.515A Adverse effect of anticoagulants, initial encounter; Z79.01 Long term (current) use of anticoagulants; Z79.899 Other long term (current) drug therapy; J44.9 Chronic obstructive pulmonary disease, unspecified; I10 Essential (primary) hypertension; E78.00 Pure hypercholesterolemia, unspecified
CPT/HCPCS: 36000; 36415; 71045; 80048; 80053; 81001; 82550; 82962; 83036; 83605; 83690; 83735; 84484; 85025; 85610; 85730; 87086; 93005; 93268; 94760; 96360; 96361; 99285; G0378; J2405; J3430; A9270-GY

== ENCOUNTER 2019-07-27 22:15 | Emergency (ER) | payer MEDICARE ==
[2019-07-27] MEDS ORDERED: BENADRYL 50 MG/ML IV ONE (22:23)
[2019-07-27] MEDS ORDERED: Sodium Chloride 0.9% 1000 ML 1,000 ML IV STA (22:23)
[2019-07-27] MEDS ORDERED: Phenergan 25 MG INJ IV ONE (22:23)
[2019-07-27] MEDS ORDERED: BABY ASPIRIN 81 MG CHEW PO ONE (22:23)
[2019-07-27] MEDS ORDERED: Zofran 4 MG/2 ML VIAL IV ONE (22:25)
[2019-07-27] MEDS ORDERED: Phenergan 25 MG INJ ONE (22:38)
[2019-07-27] MEDS ORDERED: Sodium Chloride 0.9% 1000 ML 1,000 ML ONE (22:38)
[2019-07-27] MEDS ORDERED: BENADRYL 50 MG/ML ONE (22:38)
[2019-07-27] MEDS ORDERED: Zofran 4 MG/2 ML VIAL ONE (22:38)
--- NOTE | 2019-07-27 22:39 | ERPHSYRPT ---
- History of Present Illness Time Seen by Provider: 07/27/19 22:19 Source: patient Exam Limitations: no limitations Physician History: Patient is here with N/V for 3 days. He states he feels generally unwell. He has no falls or trauma. He is unsure of who his PCP is. Location: generalized malaise Quality: N/V Radiation: none Severity: moderate Duration: 2-3 days Timing: gradual Modifying factors/associated signs and symptoms: none tried Timing/Duration: day(s) Severity: moderate Modifying Factors: Worsens With: eating, rest Associated Symptoms: nausea, vomiting Allergies/Adverse Reactions: codeine Allergy (Verified 02/21/19 13:29) Home Medications: Amlodipine Besylate 10 mg PO DAILY 02/21/19 [History] Atorvastatin Calcium 80 mg PO HS 02/21/19 [History] Escitalopram Oxalate 10 mg [Lexapro 10 MG] 10 mg PO DAILY 02/21/19 [History] Fenofibric Acid (Choline) [Fenofibric Acid] 135 mg PO HS 02/21/19 [History] Glipizide Xl 10 mg [Glucotrol Xl 10 MG] 10 mg PO DAILY 02/21/19 [History] Metoprolol Tartrate 50 mg [Lopressor 50 MG] 50 mg PO BID 02/21/19 [History ] Sitagliptin Phosphate [Januvia] 50 mg PO DAILY 02/21/19 [History] Warfarin Sodium 2 mg PO DAILY 02/21/19 [History] hydroCHLOROthiazide [Hydrochlorothiazide] 12.5 mg PO DAILY 02/21/19 [History] lisinopriL [Lisinopril] 5 mg PO DAILY 02/21/19 [History] Hx Tetanus, Diphtheria Vaccination/Date Given: No Hx Influenza Vaccination/Date Given: No Hx Pneumococcal Vaccination/Date Given: No - Review of Systems Constitutional: Fever, Chills Eyes: No Symptoms Ears, Nose, & Throat: No Symptoms Respiratory: Cough, No Dyspnea Cardiac: No Chest Pain, No Edema, No Syncope Abdominal/Gastrointestinal: Nausea, Vomiting, No Abdominal Pain, No Diarrhea Genitourinary Symptoms: No Dysuria Musculoskeletal: No Back Pain, No Neck Pain Skin: No Rash Neurological: No Dizziness, No Focal Weakness, No Sensory Changes Psychological: No Symptoms Endocrine: No Symptoms All Other Systems: Reviewed and Negative - Past Medical History Pertinent Past Medical History: Yes Neurological History: Stroke ENT History: Cataracts Cardiac History: High Cholesterol, Hypertension Respiratory History: COPD Endocrine Medical History: Diabetes Type II Musculoskeletal History: No Pertinent History GI Medical History: No Pertinent History History: No Pertinent History Psycho-Social History: No Pertinent History Male Reproductive Disorders: No Pertinent History - Past Surgical History Past Surgical History: Yes Gastrointestinal: Cholecystectomy Other Surgical History: AAA SURGERY - Social History Smoking Status: Current every day smoker How long have you smoked: YRS Exposure to second hand smoke: No Drug Use: none Patient Lives Alone: No - Nursing Vital Signs Nursing Vital Signs: Initial Vital Signs Temperature 97.4 F 07/27/19 22:16 Pulse Rate 54 L 07/27/19 22:16 Respiratory Rate 07/27/19 22:16 Blood Pressure 142/95 07/27/19 22:16 O2 Sat by Pulse Oximetry 90 L 07/27/19 22:16 Pain Scale Pain Intensity 0 - Physical Exam General Appearance: no apparent distress, mild distress, alert, cachetic, other (generally appears unwell) Eye Exam: PERRL/EOMI, eyes nml inspection Ears, Nose, Throat Exam: normal ENT inspection, TMs normal, pharynx normal, moist mucous membranes Neck Exam: normal inspection, non-tender, supple, full range of motion Respiratory Exam: normal breath sounds, lungs clear, No respiratory distress Cardiovascular Exam: regular rate/rhythm, normal heart sounds, normal peripheral pulses Gastrointestinal/Abdomen Exam: soft, normal bowel sounds, No tenderness, No mass Back Exam: normal inspection, normal range of motion, No CVA tenderness, No vertebral tenderness Extremity Exam: normal inspection, normal range of motion, pelvis stable Neurologic Exam: alert, oriented x 3, cooperative, normal mood/affect, nml cerebellar function, nml station & gait, sensation nml, No motor deficits Skin Exam: normal color, warm, dry, jaundice, No rash Lymphatic Exam: No adenopathy, No inguinal node tender (L) SpO2 Interpretation: borderline oxygenation SpO2: 90 Comments: 07/27/19 22:37 No obvious deformity, sensation intact, 2+ capillary refill, 2 point tactile discrimination intact. 5 out of 5 strength. Full range of motion without pain. Compartments are soft, nontender. Overlying skin shows no tenting, bruising, ecchymosis. Ordered Tests: Active Orders 24 hr Category Date Time Status Mental Tester STAT Care 07/27/19 22:24 Active EKG-ER Only STAT Care 07/27/19 22:23 Active IV Insertion STAT Care 07/27/19 22:23 Active ABDOMEN AND PELVIS W/0 CONTRAS [CT] Stat Exams 07/27/19 00:45 Taken CHEST 1 VIEW (PORTABLE) Stat Exams 07/27/19 22:24 Taken HEAD WITHOUT CONTRAST [CT] Stat Exams 07/27/19 23:29 Taken ACETAMINOPHEN Stat Lab 07/27/19 23:01 Completed BLOOD CULTURE Stat Lab 07/27/19 22:45 Received CBC W DIFF Stat Lab 07/27/19 22:35 Completed CK-Creatinine Phosphokinase Stat Lab 07/27/19 22:35 Completed CMP Stat Lab 07/27/19 22:35 Completed CULTURE,URINE Stat Lab 07/27/19 23:56 Received ETHYL ALCOHOL Stat Lab 07/27/19 23:01 Completed LIPASE Stat Lab 07/27/19 22:35 Completed Lactic Acid Stat Lab 07/27/19 22:43 Completed Manual Differential NC Stat Lab 07/27/19 22:35 Completed NT PRO BNP Stat Lab 07/27/19 22:35 Completed Occult Blood, Other Screening Stat Lab 07/27/19 22:24 Completed PROTIME WITH INR Stat Lab 07/27/19 22:35 Completed SALICYLATE Stat Lab 07/27/19 23:01 Completed TROPONIN Q3H Lab 07/27/19 22:35 Completed TROPONIN Q3H Lab 07/28/19 01:30 Ordered TROPONIN Q3H Lab 07/28/19 04:30 Ordered TROPONIN Q3H Lab 07/28/19 07:30 Ordered TROPONIN Q3H Lab 07/28/19 10:30 Ordered Urine Triage Profile Stat Lab 07/27/19 22:24 Received Medication Summary Generic Name Dose Route Start Last Admin Trade Name Freq PRN Reason Stop Dose Admin Vancomycin HCl 1 gm in 250 mls @ 167 mls/hr 07/27/19 23:00 07/27/19 23:19 Vancomycin 1gm/ Ns 250ml IV 07/28/19 00:59 167 mls/hr Q1H JOSE JUAN Administration Discontinued Medications Generic Name Dose Route Start Last Admin Trade Name Freq PRN Reason Stop Dose Admin Aspirin 324 mg 07/27/19 22:23 07/27/19 22:53 Baby Aspirin 81 Mg Chew PO 07/27/19 22:24 324 mg STAT ONE Administration Diphenhydramine HCl 25 mg 07/27/19 22:23 07/27/19 22:51 Benadryl 50 Mg/Ml IV 07/27/19 22:24 25 mg STAT ONE Administration Diphenhydramine HCl Confirm 07/27/19 22:38 Benadryl 50 Mg/Ml Administered 07/27/19 22:39 Dose 50 mg .ROUTE .STK-MED ONE Sodium Chloride 1,000 mls @ 999 mls/hr 07/27/19 22:23 07/28/19 00:24 Sodium Chloride 0.9% 1000 Ml IV 07/27/19 23:23 Infused .Q1H1M STA Infusion Sodium Chloride Confirm 07/27/19 22:38 Sodium Chloride 0.9% 1000 Ml Administered 07/27/19 22:39 Dose 1,000 mls @ ud .ROUTE .STK-MED ONE Piperacillin Sod/Tazobactam 100 mls @ 200 mls/hr 07/27/19 22:52 07/27/19 23: 34 Sod 4.5 gm/ Dextrose IV 07/27/19 23:21 200 mls/hr STAT ONE Administration Dextrose Confirm 07/27/19 23:16 D5w 100ml Mini Bag 100 Ml Administered 07/27/19 23:17 Dose 100 mls @ ud IV .STK-MED ONE Ondansetron HCl 4 mg 07/27/19 22:25 07/27/19 22:47 Zofran 4 Mg/2 Ml Vial IV 07/27/19 22:26 4 mg STAT ONE Administration Ondansetron HCl Confirm 07/27/19 22:38 Zofran 4 Mg/2 Ml Vial Administered 07/27/19 22:39 Dose 4 mg .ROUTE .STK-MED ONE Piperacillin Sod/Tazobactam Sod Confirm 07/27/19 23:15 Zosyn Inj Administered 07/27/19 23:16 Dose 4.5 gm IV .STK-MED ONE Promethazine HCl 12.5 mg 07/27/19 22:23 07/27/19 22:49 Phenergan 25 Mg Inj IV 07/27/19 22:24 12.5 mg STAT ONE Administration Promethazine HCl Confirm 07/27/19 22:38 Phenergan 25 Mg Inj Administered 07/27/19 22:39 Dose 25 mg .ROUTE .STK-MED ONE Lab/Rad Data: Laboratory Result Diagrams 07/27/19 22:35 07/27/19 22:35 Laboratory Results 07/28/19 07/27/19 07/27/19 Range/Units 00:15 23:01 22:45 WBC (4.0-10.5) K/mm3 RBC (4.1-5.6) M/mm3 Hgb (12.5-18.0) gm/dl Hct (42-50) % MCV (78-100) fl MCH (26-32) pg MCHC (32-36) g/dl RDW (11.5-14.0) % Plt Count (150-450) K/mm3 MPV (7.5-11.0) fl Absolute Granulocytes (1.4-6.9) Segmented Neutrophils (36.-66.) % Band Neutrophils (0.0-2.0) % Lymphocytes (Manual) (24-44) % Monocytes (Manual) (0.0-12.0) % Platelet Estimate (NORMAL) RBC Morphology Poikilocytosis Anisocytosis [place] Cells PT (8.83-12.87) SECONDS INR (0.8-3.0) Sodium (137-145) mmol/L Potassium (3.5-5.1) mmol/L Chloride (98-107) mmol/L Carbon Dioxide (22-30) mmol/L Anion Gap (5-15) MEQ/L BUN (9-20) mg/dL Creatinine (0.66-1.25) mg/dL Estimated GFR ML/MIN Glucose (74-106) mg/dL Lactic Acid (0.4-2.0) Calcium (8.4-10.2) mg/dL Total Bilirubin (0.2-1.3) mg/dL AST (17-59) U/L ALT (0-50) U/L Alkaline Phosphatase (38-126) U/L Creatine Kinase (55-170) U/L Troponin I (0.000-0.034) ng/mL NT-Pro-B Natriuret Pep (0-900) pg/mL Serum Total Protein (6.3-8.2) g/dL Albumin (3.5-5.0) g/dL Lipase (23-300) U/L Stool Occult Blood NEGATIVE (Negative) Salicylates < 1.0 L (2-20) mg/dL Acetaminophen < 10 L (10-30) ug/ml Ethyl Alcohol < 10 (0-10) mg/dL Influenza Type A Ag NEGATIVE (NEGATIVE) Influenza Type B Ag NEGATIVE (NEGATIVE) RSV (PCR) NEGATIVE (Negative) 07/27/19 07/27/19 07/27/19 Range/Units 22:43 22:35 22:35 WBC (4.0-10.5) K/mm3 RBC (4.1-5.6) M/mm3 Hgb (12.5-18.0) gm/dl Hct (42-50) % MCV (78-100) fl MCH (26-32) pg MCHC (32-36) g/dl RDW (11.5-14.0) % Plt Count (150-450) K/mm3 MPV (7.5-11.0) fl Absolute Granulocytes (1.4-6.9) Segmented Neutrophils (36.-66.) % Band Neutrophils (0.0-2.0) % Lymphocytes (Manual) (24-44) % Monocytes (Manual) (0.0-12.0) % Platelet Estimate (NORMAL) RBC Morphology Poikilocytosis Anisocytosis [place] Cells PT (8.83-12.87) SECONDS INR (0.8-3.0) Sodium (137-145) mmol/L Potassium (3.5-5.1) mmol/L Chloride (98-107) mmol/L Carbon Dioxide (22-30) mmol/L Anion Gap (5-15) MEQ/L BUN (9-20) mg/dL Creatinine (0.66-1.25) mg/dL Estimated GFR ML/MIN Glucose (74-106) mg/dL Lactic Acid 3.7 H (0.4-2.0) Calcium (8.4-10.2) mg/dL Total Bilirubin (0.2-1.3) mg/dL AST (17-59) U/L ALT (0-50) U/L Alkaline Phosphatase (38-126) U/L Creatine Kinase (55-170) U/L Troponin I 0.072 H* (0.000-0.034) ng/mL NT-Pro-B Natriuret Pep (0-900) pg/mL Serum Total Protein (6.3-8.2) g/dL Albumin (3.5-5.0) g/dL Lipase 1750 H (23-300) U/L Stool Occult Blood (Negative) Salicylates (2-20) mg/dL Acetaminophen (10-30) ug/ml Ethyl Alcohol (0-10) mg/dL Influenza Type A Ag (NEGATIVE) Influenza Type B Ag (NEGATIVE) RSV (PCR) (Negative) 07/27/19 07/27/19 07/27/19 Range/Units 22:35 22:35 22:35 WBC 9.4 (4.0-10.5) K/mm3 RBC 3.27 L (4.1-5.6) M/mm3 Hgb 9.7 L (12.5-18.0) gm/dl Hct 27.8 L (42-50) % MCV 85.0 (78-100) fl MCH 29.7 (26-32) pg MCHC 34.9 (32-36) g/dl RDW 15.4 H (11.5-14.0) % Plt Count 217 (150-450) K/mm3 MPV 9.3 (7.5-11.0) fl Absolute Granulocytes 7.496 H (1.4-6.9) Segmented Neutrophils 77 H (36.-66.) % Band Neutrophils 3 H (0.0-2.0) % Lymphocytes (Manual) 17 L (24-44) % Monocytes (Manual) 3 (0.0-12.0) % Platelet Estimate NORMAL (NORMAL) RBC Morphology ABNORMAL Poikilocytosis 2+ Anisocytosis 1+ [place] Cells 4+ PT 18.9 H (8.83-12.87) SECONDS INR 1.66 (0.8-3.0) Sodium 128 L (137-145) mmol/L Potassium 4.0 (3.5-5.1) mmol/L Chloride 91 L (98-107) mmol/L Carbon Dioxide 17 L (22-30) mmol/L Anion Gap 23.7 H (5-15) MEQ/L BUN 127 H (9-20) mg/dL Creatinine 5.91 H (0.66-1.25) mg/dL Estimated GFR 10.2 ML/MIN Glucose 146 H (74-106) mg/dL Lactic Acid (0.4-2.0) Calcium 7.4 L (8.4-10.2) mg/dL Total Bilirubin 1.30 (0.2-1.3) mg/dL AST 234 H (17-59) U/L ALT 88 H (0-50) U/L Alkaline Phosphatase 56 (38-126) U/L Creatine Kinase 2307 H (55-170) U/L Troponin I (0.000-0.034) ng/mL NT-Pro-B Natriuret Pep 3920 H (0-900) pg/mL Serum Total Protein 5.6 L (6.3-8.2) g/dL Albumin 2.8 L (3.5-5.0) g/dL Lipase (23-300) U/L Stool Occult Blood (Negative) Salicylates (2-20) mg/dL Acetaminophen (10-30) ug/ml Ethyl Alcohol (0-10) mg/dL Influenza Type A Ag (NEGATIVE) Influenza Type B Ag (NEGATIVE) RSV (PCR) (Negative) - Progress Progress: unchanged Progress Note: 07/27/19 22:38 Patient appears generally unwell and jaundice. - we will obtain basic labs - fluids, EKG, CXR - blood culture, UA, insert paulino catheter - sepsis pathways 07/28/19 01:18 ED critical care statement As staff physician, I have provided critical care. Time: 60 Criteria for critical illness: severe sepsis Treatment and management provided include: Coordination of management with [facility] care team, consultants, and inpatient care team. [id number] assessment of condition and response to therapy. Review and interpretation of emergent diagnostic testing. Medical chart review and completion. Direction and immediate supervision of the following therapy: Critical care was time spent personally by me on the following activities: blood draw for specimens, development of treatment plan with patient or surrogate, discussions with consultants, discussions with primary provider, interpretation of cardiac output measurements, evaluation of patient&# 39;s response to treatment, examination of patient, obtaining history from patient or surrogate, ordering and performing treatments and interventions, ordering and review of laboratory studies, ordering and review of radiographic studies, pulse oximetry, re-evaluation of patient's condition and review of old charts. This time was independent of all procedures performed. Gurjit Mathias Patient improving with fluids. Appears to have severe sepsis. No obvious source of infection yet. Also, pancreatits and dehydration. Patient started on broad spectrum antibiotics. He was transferred to [facility]. I spoke with Dr. Zhu of the ER. Patient accepted as direct ER to ER transfer. 07/28/19 01:21 Counseled pt/family regarding: drug and/or alcohol abuse, lab results, diagnosis , need for follow-up, rad results, smoking cessation - Departure Departure Disposition: Transfer Clinical Impression: Acute renal failure (ARF), Severe sepsis, Pancreatitis Condition: Stable Critical Care Time: Yes Critical Care Time(excluding separately billable procedures): Critical 30-74 mins Referrals: DOMINGA ROCHE NP [Primary Care Provider] -
[2019-07-27 22:50] LABS: Hematocrit 27.8 % (42-50); Hemoglobin 9.7 gm/dl (12.5-18.0); Mean Corpuscular Hemoglobin 29.7 pg (26-32); Mean Corpuscular Hgb Concent. 34.9 g/dl (32-36); Mean Platelet Volume 9.3 fl (7.5-11.0); Platelet Count 217 K/mm3 (150-450); Red Blood Count 3.27 M/mm3 (4.1-5.6); Red Cell Distribution Width 15.4 % (11.5-14.0); White Blood Count 9.4 K/mm3 (4.0-10.5)
[2019-07-27] MEDS ORDERED: Zosyn INJ 4.5 GM in D5w 100ML Mini Bag 100 ML 100 ML IV ONE (22:52)
[2019-07-27 22:59] LABS: INR 1.66 (0.8-3.0); PROTIME 18.9 SECONDS (8.83-12.87)
[2019-07-27] MEDS ORDERED: Vancomycin 1GM/ Ns 250ML*** 1 GM/250 ML IVPB IV SCH (23:00)
[2019-07-27 23:05] LABS: ACETAMINOPHEN < 10 ug/ml (10-30); ETHYL ALCOHOL < 10 mg/dL (0-10); SALICYLATE < 1.0 mg/dL (2-20)
[2019-07-27 23:12] LABS: ALBUMIN 2.8 g/dL (3.5-5.0); ANION GAP 23.7 MEQ/L (5-15); BILIRUBIN,TOTAL 1.3 mg/dL (0.2-1.3); Calcium 7.4 mg/dL (8.4-10.2); Total Protein 5.6 g/dL (6.3-8.2)
[2019-07-27 23:14] LABS: Creatinine 1 5.91 mg/dL (0.66-1.25)
[2019-07-27] MEDS ORDERED: Zosyn INJ IV ONE (23:15)
[2019-07-27] MEDS ORDERED: D5w 100ML Mini Bag 100 ML 100 ML IV ONE (23:16)
[2019-07-27] MEDS ORDERED: Vancomycin 1GM/ Ns 250ML*** 250 ML IV ONE ×2 (23:17→23:22)
[2019-07-27 23:42] LABS: INFLUENZA A NEGATIVE (NEGATIVE); INFLUENZA B NEGATIVE (NEGATIVE); RESPIRATORY SYNCTIAL VIRUS NEGATIVE (Negative)
[2019-07-28 00:12] LABS: BAND 3 % (0.0-2.0); Burr Cells 4+; Lymphocytes 17 % (24-44); Monocyte 3 % (0.0-12.0); Neutrophils 77 % (36.-66.); Platelet Estimate NORMAL (NORMAL); Total Cells Counted 100
[2019-07-28 00:13] LABS: ANISOCYTOSIS 1+; Poikilocytosis 2+
[2019-07-28 00:15] LABS: Absolute Neutrophil Ct (ANC) 7.496 (1.4-6.9)
[2019-07-28 01:05] LABS: Amphetamine,Urine NEGATIVE (NEGATIVE); Barbiturate,Urine NEGATIVE (NEGATIVE); Benzodiazepine,Urine NEGATIVE (NEGATIVE); Methadone,Urine NEGATIVE (NEGATIVE); Opiate,Urine NEGATIVE (NEGATIVE); PCP,Urine NEGATIVE (NEGATIVE); THC,Urine NEGATIVE (NEGATIVE)
[2019-07-28 02:36] LABS: Cocaine,Urine NEGATIVE (NEGATIVE)
[2019-07-28 02:53] LABS: Appearance SLIGHTLY CLOUDY (CLEAR); Bilirubin NEGATIVE (NEGATIVE); Blood LARGE Ery/ul (0-5); Glucose NEGATIVE (NEGATIVE); Ketones NEGATIVE (NEGATIVE); Leukocyte Esterase NEGATIVE (NEGATIVE); Mucus SLIGHT /HPF (NEGATIVE); Nitrite NEGATIVE (NEGATIVE); Protein,Urine Dip 30 (Negative); Specific Gravity 1.014 (1.005-1.025); Urobilinogen 2 mg/dL (0-1)
[2019-07-28 03:02] VITALS: BP 106/93; PULSE 90; O2SAT 95
--- NOTE | 2019-07-28 09:16 | XRAY ---
Indication: Acute mental status change. Status post fall. Multiple contiguous axial images obtained through the head without contrast. Comparison: August 19, 2008. New finding for old left temporal occipital infarct. Elsewhere age-appropriate global atrophy and mild periventricular degenerative micro-ischemia bilaterally. No acute intracranial hemorrhage, hydrocephalus, or mass effect. Fourth ventricle is midline. Bony calvarium intact. Visualized paranasal sinuses and mastoid air cells are clear. Impression: Old left temporal occipital infarct. Atrophy and degenerative micro-ischemia within normal limits for patient's age. No acute intracranial abnormalities. Comment: Preliminary interpretation was made by [facility]. No critical discrepancy.
--- NOTE | 2019-07-28 09:36 | XRAY ---
Indication: Acute mental status change. Status post fall. Comparison: February 21, 2019. Portable chest demonstrates new right hemidiaphragm elevation. No focal infiltrate, consolidation, or large effusion. Heart is not enlarged. Ascending aorta remains markedly tortuous. Bony thorax intact. Impression: Right hemidiaphragm elevation. No acute or active cardiopulmonary abnormalities.
--- NOTE | 2019-07-28 09:39 | XRAY ---
Indication: Acute mental status change. Status post fall. Multiple contiguous axial images obtained through the abdomen and pelvis without contrast as ordered. Comparison: August 19, 2008. Study is slightly degraded by respiration artifact. There is also beam artifact from patient's arms. Lung bases grossly clear. Heart is not enlarged. Noncontrasted stomach unremarkable. Noncontrasted bowel loops now appear mildly fluid distended throughout with synchronous fluid leveling, ileus versus enteritis. There is colonic bowel gas. New small free fluid along the right colic gutter and lesser degree the pelvis. Right mid kidney also demonstrates new 3 cm round hypodense lesion with irregular margins and moderate perinephric fluid. Lack of IV contrast precludes further characterization. Additional new 1.4 cm right lower pole exophytic mass slightly more dense than a simple cyst, possibly hemorrhagic/viscus/complex cyst. Left kidney now appears atrophic with nonobstructing micro-calculi in the lower calyx. Previous large mid pole exophytic cyst today measures 1.7 cm. Left kidney also demonstrates new perinephric posterior calcifications presumed sequela to previous retroperitoneal hemorrhage. No hydronephrosis or hydroureter. Patel balloon catheter again empties the urinary bladder. Stable chunky prostate calcifications. Interval cholecystectomy. Remaining liver, pancreas, spleen, and adrenal glands appear unremarkable for noncontrast exam. There remains scattered vascular calcifications. Interval enlarging fusiform aneurysm of the proximal aorta measuring 3.5 x 5.0 cm. Mid aorta 3.8 x 3.8 cm. Distal aorta 2.5 x 3.1 cm. New aortobiiliac stent grafts Osseous structures again demonstrates mild osteopenia and worsening L5-S1 degenerative disc disease. No ventral or inguinal hernias. Impression: 1. Beam and respiration artifact limits exam. 2. Uniformly fluid distended small bowel loops with synchronous fluid leveling, ileus versus enteritis. New small abdomen/pelvic free fluid possibly reactive. 3. New right mid renal hypodense lesion with irregular margins and smaller right lower pole lesion and perinephric fluid. Lack of IV contrast precludes further characterization. 4. New left renal atrophy with smaller exophytic cysts. New posterior left perinephric calcifications presumed sequela to previous retroperitoneal hemorrhage. 5. Again scattered arteriosclerotic disease with fusiform AAA as detailed and new aorto biiliac stent grafts. Lack of IV contrast precludes further characterization. 6. Stable chunky prostate calcifications with Patel catheter in situ. Comment: Preliminary interpretation was made by [facility]. No critical discrepancy.
== END 2019-07-28 03:00 | disposition short-term general hospital (02) ==
LOC: ED 22:15
DX: N17.9 Acute kidney failure, unspecified (principal); A41.9 Sepsis, unspecified organism; R65.20 Severe sepsis without septic shock; K85.90 Acute pancreatitis without necrosis or infection, unspecified; I10 Essential (primary) hypertension; E11.9 Type 2 diabetes mellitus without complications; J44.9 Chronic obstructive pulmonary disease, unspecified; E78.00 Pure hypercholesterolemia, unspecified; Z79.01 Long term (current) use of anticoagulants; Z79.899 Other long term (current) drug therapy
CPT/HCPCS: 36000; 36415; 70450; 71045; 74176; 80053; 80307; 81001; 82272; 82550; 83605; 83690; 83880; 84484; 85025; 85610; 87040; 87086; 87631; 93005; 93041; 96360; 96374; 96375; 99285; 99291; G0480; G0481; J1200; J2405; J2543; J2550; J3370; A9270-GY

== ENCOUNTER 2019-12-18 12:59 | Emergency (ER) | payer MEDICARE ==
--- NOTE | 2019-12-18 14:14 | XRAY ---
Indication: Pain. No known injury. Comparison: None 2 view right hip demonstrates minimal vascular calcifications and tiny greater trochanter heterotopic ossification. No other bony, articular, or soft tissue abnormalities.
--- NOTE | 2019-12-18 14:15 | XRAY ---
Indication: Pain. No known injury. Comparison: None 2 view right femur demonstrates minimal scattered vascular calcifications and tiny greater trochanter heterotopic ossification. No other bony, articular, or soft tissue abnormalities.
[2019-12-18] MEDS ORDERED: Sodium Chloride 0.9% 1000 ML 1,000 ML IV SCH (15:00)
[2019-12-18] MEDS ORDERED: Sodium Chloride 0.9% 1000 ML 1,000 ML ONE (15:02)
[2019-12-18 15:27] LABS: INR 1.44 (0.8-3.0); PROTIME 16.4 SECONDS (8.83-12.87)
[2019-12-18 15:31] LABS: ALBUMIN 2.5 g/dL (3.5-5.0); ANION GAP 14.4 MEQ/L (5-15); BILIRUBIN,TOTAL 0.9 mg/dL (0.2-1.3); Calcium 8.3 mg/dL (8.4-10.2); Potassium 4.7 mmol/L (3.5-5.1); Total Protein 6.2 g/dL (6.3-8.2)
[2019-12-18 15:37] LABS: Absolute Neutrophil Ct (ANC) 12.86 (1.4-6.9); BASOPHIL % 0.1 % (0.0-0.4); Basophil (Absolute #) 0.01 (0-0.4); Eosinophil % 0.3 % (0.00-5.0); Eosinophil (Absolute #) 0.04 (0-0.5); Hematocrit 38.7 % (42-50); Hemoglobin 11.8 gm/dl (12.5-18.0); Lymphocyte (Absolute #) 1.53 (1.0-4.6); Lymphocytes % 10.1 % (24.0-44.0); Mean Cell Volume 98.5 fl (78-100); Mean Corpuscular Hgb Concent. 30.5 g/dl (32-36); Mean Platelet Volume 10.3 fl (7.5-11.0); Monocyte (Absolute #) 0.76 (0.0-1.3); Neutrophil % 84.5 % (36.0-66.0); Platelet Count 207 K/mm3 (150-450); Red Blood Count 3.93 M/mm3 (4.1-5.6); Red Cell Distribution Width 18.7 % (11.5-14.0); White Blood Count 15.2 K/mm3 (4.0-10.5)
--- NOTE | 2019-12-18 16:40 | XRAY ---
Indication: Right lower quadrant pain. Right inguinal hernia. Multiple contiguous axial images obtained through the abdomen and pelvis without contrast as ordered. Comparison: July 28, 2019. Lung bases demonstrates new moderate bilateral pleural effusions with mild bibasilar compressive atelectasis. Heart is not enlarged. Noncontrasted stomach and bowel loops appear nonobstructed. Normal appendix. There is now mild diffuse scatter colonic fecal debris with large rectal impaction. No free fluid/air. Stable cholecystectomy clips, left renal atrophy, bilateral renal cysts, left perinephric calcifications, and chunky prostate calcifications. Remaining liver, pancreas, spleen, adrenal glands, and bladder appear unremarkable for noncontrast exam. Stable moderate scattered vascular calcifications with proximal fusiform AAA, ectatic aorta, and aortobiiliac stent grafts. Lack of IV contrast precludes further characterization. Osseous structures again demonstrates osteopenia and moderate L5-S1 degenerative disc disease. Both hips and proximal femurs unremarkable. No ventral or inguinal hernias. Impression: 1. New moderate bibasilar pleural effusions without cardiomegaly. 2. New fecal stasis with rectal impaction. 3. Stable left renal atrophy, bilateral renal cysts, left perinephric calcifications, benign prostate calcifications, arteriosclerotic disease with proximal AAA, aortobiiliac stent grafts, and chronic bony findings.
--- NOTE | 2019-12-18 18:03 | ERPHSYRPT ---
- History of Present Illness Time Seen by Provider: 12/18/19 13:35 Source: patient Exam Limitations: clinical condition Patient Subjective Stated Complaint: pt to ER by EMS from [facility]. pt was enroute for dialysis today and exhibited some pain with movement on R hip/R leg. no known injury. Triage Nursing Assessment: pt brought in by EMS. pt confused. pt from [place]. Pt appears low weight and in pain. Physician History: Is a 69-year-old male who has end-stage renal disease and is a resident at an [facility]. Today the ambulance crew came to take him to dialysis and when he stood up he started to scream in pain with his right hip. They brought him to the ER instead of dialysis x-rays will be done and his pain evaluated. Timing/Duration: today Severity: severe Modifying Factors: Improves With: movement Associated Symptoms: denies symptoms Allergies/Adverse Reactions: codeine Allergy (Verified 12/18/19 13:22) Home Medications: Amlodipine Besylate 10 mg PO DAILY 02/21/19 [History] Atorvastatin Calcium 80 mg PO HS 02/21/19 [History] Escitalopram Oxalate 10 mg [Lexapro 10 MG] 10 mg PO DAILY 02/21/19 [History] Fenofibric Acid (Choline) [Fenofibric Acid] 135 mg PO HS 02/21/19 [History] Glipizide Xl 10 mg [Glucotrol Xl 10 MG] 10 mg PO DAILY 02/21/19 [History] Metoprolol Tartrate 50 mg [Lopressor 50 MG] 50 mg PO BID 02/21/19 [History ] Sitagliptin Phosphate [Januvia] 50 mg PO DAILY 02/21/19 [History] Warfarin Sodium 2 mg PO DAILY 02/21/19 [History] hydroCHLOROthiazide [Hydrochlorothiazide] 12.5 mg PO DAILY 02/21/19 [History] lisinopriL [Lisinopril] 5 mg PO DAILY 02/21/19 [History] Hx Tetanus, Diphtheria Vaccination/Date Given: Yes Hx Influenza Vaccination/Date Given: Yes Hx Pneumococcal Vaccination/Date Given: Yes Immunizations Up to Date: Yes Travel Risk - International Travel Have you traveled outside of the country in past 3 weeks: No - Coronavirus Screening Are you exhibiting any of the following symptoms?: No Close contact with a COVID-19 positive Pt in past 14-21 Days: No - Review of Systems Constitutional: No Fever, No Chills Eyes: No Symptoms Ears, Nose, & Throat: No Symptoms Respiratory: No Cough, No Dyspnea Cardiac: No Chest Pain, No Edema, No Syncope Abdominal/Gastrointestinal: No Abdominal Pain, No Nausea, No Vomiting, No Diarrhea Genitourinary Symptoms: No Dysuria Musculoskeletal: Joint Pain, No Back Pain, No Neck Pain Skin: No Rash Neurological: No Dizziness, No Focal Weakness, No Sensory Changes Psychological: No Symptoms Endocrine: No Symptoms All Other Systems: Reviewed and Negative - Past Medical History Pertinent Past Medical History: Yes Neurological History: Stroke ENT History: Cataracts Cardiac History: High Cholesterol, Hypertension Respiratory History: COPD Endocrine Medical History: Diabetes Type II Musculoskeletal History: No Pertinent History GI Medical History: No Pertinent History History: No Pertinent History Psycho-Social History: No Pertinent History Male Reproductive Disorders: No Pertinent History - Past Surgical History Past Surgical History: Yes Neuro Surgical History: No Pertinent History Cardiac: No Pertinent History Respiratory: No Pertinent History Gastrointestinal: Cholecystectomy Genitourinary: No Pertinent History Musculoskeletal: No Pertinent History Male Surgical History: No Pertinent History Other Surgical History: AAA SURGERY - Social History Smoking Status: Current every day smoker How long have you smoked: YRS Exposure to second hand smoke: No Drug Use: none Patient Lives Alone: No - Nursing Vital Signs Nursing Vital Signs: Initial Vital Signs Temperature 97.7 F 12/18/19 13:10 Pulse Rate 66 12/18/19 13:10 Respiratory Rate 22 12/18/19 13:10 Blood Pressure 189/106 12/18/19 13:10 O2 Sat by Pulse Oximetry 98 12/18/19 13:10 Pain Scale Pain Intensity 10 - Physical Exam General Appearance: moderate distress (Moderate distress with any palpation of the right hip area right inguinal area or movement), alert Eye Exam: PERRL/EOMI, eyes nml inspection Ears, Nose, Throat Exam: normal ENT inspection, TMs normal, pharynx normal, moist mucous membranes Neck Exam: normal inspection, non-tender, supple, full range of motion Respiratory Exam: normal breath sounds, lungs clear, No respiratory distress Cardiovascular Exam: regular rate/rhythm, normal heart sounds, normal peripheral pulses Gastrointestinal/Abdomen Exam: soft, normal bowel sounds, No tenderness, No mass Back Exam: normal inspection, normal range of motion, No CVA tenderness, No vertebral tenderness Extremity Exam: other (Tenderness with palpation of any of the right hip area or inguinal area) Neurologic Exam: alert, oriented x 3, cooperative, normal mood/affect, nml cerebellar function, nml station & gait, sensation nml, No motor deficits Skin Exam: normal color, warm, dry, No rash Lymphatic Exam: No adenopathy SpO2 Interpretation: normal SpO2: 99 O2 Delivery: Room Air - Course Nursing assessment & vital signs reviewed: Yes - Radiology Exams Right Hip X-ray Interpretation: Negative - CT Exams Lower Extremity CT Interpretation: Negative Ordered Tests: Active Orders 24 hr Category Date Time Status ABDOMEN AND PELVIS W/0 CONTRAS [CT] Stat Exams 12/18/19 15:50 Completed FEMUR Stat Exams 12/18/19 13:20 Completed HIP UNI (2V) INCL PEL IF DONE Stat Exams 12/18/19 13:19 Completed AMYLASE Stat Lab 12/18/19 15:17 Completed CBC W DIFF Stat Lab 12/18/19 15:17 Completed CMP Stat Lab 12/18/19 15:17 Completed LIPASE Stat Lab 12/18/19 15:17 Completed Lactic Acid Stat Lab 12/18/19 15:15 Completed Lactic Acid Stat Lab 12/18/19 17:18 Completed PROTIME WITH INR Stat Lab 12/18/19 15:17 Completed Medication Summary Generic Name Dose Route Start Last Admin Trade Name Freq PRN Reason Stop Dose Admin Sodium Chloride 1,000 mls @ 100 mls/hr 12/18/19 15:00 12/18/19 15:10 Sodium Chloride 0.9% 1000 Ml IV 01/17/20 14:59 100 mls/hr .Q10H JOSE JUAN Administration Lab/Rad Data: Laboratory Result Diagrams 12/18/19 15:17 12/18/19 15:17 Laboratory Results 12/18/19 12/18/19 12/18/19 Range/Units 17:18 15:17 15:17 WBC (4.0-10.5) K/mm3 RBC (4.1-5.6) M/mm3 Hgb (12.5-18.0) gm/dl Hct (42-50) % MCV (78-100) fl MCH (26-32) pg MCHC (32-36) g/dl RDW (11.5-14.0) % Plt Count (150-450) K/mm3 MPV (7.5-11.0) fl Gran % (36.0-66.0) % Eos # (Auto) (0-0.5) Absolute Lymphs (auto) (1.0-4.6) Absolute Monos (auto) (0.0-1.3) Lymphocytes % (24.0-44.0) % Monocytes % (0.0-12.0) % Eosinophils % (0.00-5.0) % Basophils % (0.0-0.4) % Absolute Granulocytes (1.4-6.9) Basophils # (0-0.4) PT 16.4 H (8.83-12.87) SECONDS INR 1.44 (0.8-3.0) Sodium 133 L (137-145) mmol/L Potassium 4.7 (3.5-5.1) mmol/L Chloride 99 (98-107) mmol/L Carbon Dioxide 25 (22-30) mmol/L Anion Gap 14.4 (5-15) MEQ/L BUN 32 H (9-20) mg/dL Creatinine 2.00 H (0.66-1.25) mg/dL Estimated GFR 35.5 ML/MIN Glucose 106 (74-106) mg/dL Lactic Acid 1.4 (0.4-2.0) Calcium 8.3 L (8.4-10.2) mg/dL Total Bilirubin 0.90 (0.2-1.3) mg/dL AST 28 (17-59) U/L ALT 14 (0-50) U/L Alkaline Phosphatase 110 (38-126) U/L Serum Total Protein 6.2 L (6.3-8.2) g/dL Albumin 2.5 L (3.5-5.0) g/dL Amylase 58 (30-110) U/L Lipase 29 (23-300) U/L 12/18/19 12/18/19 Range/Units 15:17 15:15 WBC 15.2 H (4.0-10.5) K/mm3 RBC 3.93 L (4.1-5.6) M/mm3 Hgb 11.8 L (12.5-18.0) gm/dl Hct 38.7 L (42-50) % MCV 98.5 (78-100) fl MCH 30.0 (26-32) pg MCHC 30.5 L (32-36) g/dl RDW 18.7 H (11.5-14.0) % Plt Count 207 (150-450) K/mm3 MPV 10.3 (7.5-11.0) fl Gran % 84.5 H (36.0-66.0) % Eos # (Auto) 0.04 (0-0.5) Absolute Lymphs (auto) 1.53 (1.0-4.6) Absolute Monos (auto) 0.76 (0.0-1.3) Lymphocytes % 10.1 L (24.0-44.0) % Monocytes % 5.0 (0.0-12.0) % Eosinophils % 0.3 (0.00-5.0) % Basophils % 0.1 (0.0-0.4) % Absolute Granulocytes 12.86 H (1.4-6.9) Basophils # 0.01 (0-0.4) PT (8.83-12.87) SECONDS INR (0.8-3.0) Sodium (137-145) mmol/L Potassium (3.5-5.1) mmol/L Chloride (98-107) mmol/L Carbon Dioxide (22-30) mmol/L Anion Gap (5-15) MEQ/L BUN (9-20) mg/dL Creatinine (0.66-1.25) mg/dL Estimated GFR ML/MIN Glucose (74-106) mg/dL Lactic Acid 3.2 H (0.4-2.0) Calcium (8.4-10.2) mg/dL Total Bilirubin (0.2-1.3) mg/dL AST (17-59) U/L ALT (0-50) U/L Alkaline Phosphatase (38-126) U/L Serum Total Protein (6.3-8.2) g/dL Albumin (3.5-5.0) g/dL Amylase (30-110) U/L Lipase (23-300) U/L - Progress Progress: unchanged - Departure Departure Disposition: Home, Transfer (Will be transferred to [facility] for further evaluation and for dialysis as an inpatient.) Clinical Impression: Hip pain, End stage renal disease Condition: Fair Critical Care Time: No Referrals: KALEY,DOMINGA EPHRAIM, PERIODICALS CLERK [Primary Care Provider] -
[2019-12-18 18:16] VITALS: BP 164/102
[2019-12-18 19:04] VITALS: PULSE 74; O2SAT 969
== END 2019-12-18 19:02 | disposition short-term general hospital (02) ==
LOC: ED 12:59
DX: M25.551 Pain in right hip (principal); E11.9 Type 2 diabetes mellitus without complications; J44.9 Chronic obstructive pulmonary disease, unspecified; E78.00 Pure hypercholesterolemia, unspecified; Z86.73 Personal history of transient ischemic attack (TIA), and cerebral infarction without residual deficits; I12.0 Hypertensive chronic kidney disease with stage 5 chronic kidney disease or end stage renal disease; N18.6 End stage renal disease
CPT/HCPCS: 36000; 36415; 73502; 73552; 74176; 80053; 82150; 83605; 83690; 85025; 85610; 96360; 99285

== ENCOUNTER 2019-12-28 20:32 | Emergency (ER) | payer MEDICARE ==
--- NOTE | 2019-12-28 20:49 | ERPHSYRPT ---
- History of Present Illness Time Seen by Provider: 12/28/19 20:40 Source: EMS, [facility] records Exam Limitations: clinical condition Physician History: This is a 69-year-old white male who was being transported from [facility] emergency department to [facility]. Patient is a dialysis patient. He was hypotensive. Patient has a DO NOT RESUSCITATE order. There was an order written by the physician at the time of discharge. The patient went into code arrest during transport. Since the EMS service was not certain that they had a written DO NOT RESUSCITATE order, they began coding the patient and diverted to our emergency department. Patient's systolic blood pressure at [facility] the time of discharge was in the 80s. At the time of coding, which was approximately 5 minutes prior to arrival here, the pulse dropped to 40 from 110 at [facility]. EMS could not obtain a blood pressure at the time coding began. Patient arrived to the our emergency department with no spontaneous breath sounds, no palpable pulse no audible heart tones. His pupils were nonreactive. In the paperwork there was an order by the physician stating that the patient is DO NOT RESUSCITATE. We therefore did not intervene. The patient arrived clinically Timing/Duration: today Severity: severe Associated Symptoms: other (Clinically ) Allergies/Adverse Reactions: codeine Allergy (Verified 12/18/19 13:22) Home Medications: Amlodipine Besylate 10 mg PO DAILY 02/21/19 [History] Atorvastatin Calcium 80 mg PO HS 02/21/19 [History] Escitalopram Oxalate 10 mg [Lexapro 10 MG] 10 mg PO DAILY 02/21/19 [History] Fenofibric Acid (Choline) [Fenofibric Acid] 135 mg PO HS 02/21/19 [History] Glipizide Xl 10 mg [Glucotrol Xl 10 MG] 10 mg PO DAILY 02/21/19 [History] Metoprolol Tartrate 50 mg [Lopressor 50 MG] 50 mg PO BID 02/21/19 [History] Sitagliptin Phosphate [Januvia] 50 mg PO DAILY 02/21/19 [History] Warfarin Sodium 2 mg PO DAILY 02/21/19 [History] hydroCHLOROthiazide [Hydrochlorothiazide] 12.5 mg PO DAILY 02/21/19 [History] lisinopriL [Lisinopril] 5 mg PO DAILY 02/21/19 [History] Hx Tetanus, Diphtheria Vaccination/Date Given: Yes Hx Influenza Vaccination/Date Given: Yes Hx Pneumococcal Vaccination/Date Given: Yes Travel Risk - International Travel Have you traveled outside of the country in past 3 weeks: No - Coronavirus Screening Are you exhibiting any of the following symptoms?: No Close contact with a COVID-19 positive Pt in past 14-21 Days: No - Review of Systems Constitutional: No Symptoms Eyes: No Symptoms Ears, Nose, & Throat: No Symptoms Respiratory: No Symptoms Cardiac: No Symptoms Abdominal/Gastrointestinal: No Symptoms Genitourinary Symptoms: No Symptoms Musculoskeletal: No Symptoms Skin: No Symptoms Neurological: No Symptoms Psychological: No Symptoms Endocrine: No Symptoms Hematologic/Lymphatic: No Symptoms Immunological/Allergic: No Symptoms All Other Systems: Reviewed and Negative - Past Medical History Pertinent Past Medical History: Yes Neurological History: Stroke ENT History: Cataracts Cardiac History: High Cholesterol, Hypertension Respiratory History: COPD Endocrine Medical History: Diabetes Type II Musculoskeletal History: No Pertinent History GI Medical History: No Pertinent History History: No Pertinent History Psycho-Social History: No Pertinent History Male Reproductive Disorders: No Pertinent History - Past Surgical History Past Surgical History: Yes Neuro Surgical History: No Pertinent History Cardiac: No Pertinent History Respiratory: No Pertinent History Gastrointestinal: Cholecystectomy Genitourinary: No Pertinent History Musculoskeletal: No Pertinent History Male Surgical History: No Pertinent History Other Surgical History: AAA SURGERY - Social History Smoking Status: Current every day smoker How long have you smoked: YRS Exposure to second hand smoke: No Drug Use: none Patient Lives Alone: No - Physical Exam General Appearance: cachetic Eye Exam: other (Pupils dilated and non-reactive) Ears, Nose, Throat Exam: dry mucous membranes Respiratory Exam: other (No spontaneous breath sounds) Cardiovascular Exam: other (No spontaneous heart tones) Extremity Exam: other (No palpable pulses) Neurologic Exam: other (Patient unresponsive) - Course Nursing assessment & vital signs reviewed: Yes - Progress Progress: unchanged - Departure Departure Disposition: Clinical Impression: Cardiac arrest, DOA ( on arrival) Condition: Critical Care Time: Yes Referrals: DOMINGA ROCHE NP [Primary Care Provider] -
[2019-12-28 22:03] VITALS: PULSE 0
== END 2019-12-28 20:40 | disposition expired ==
LOC: ED 20:32
DX: I46.9 Cardiac arrest, cause unspecified (principal)
CPT/HCPCS: 99283